=== PATIENT | male | born 1995 | race Caucasian/White ===

== ENCOUNTER 2017-01-15 23:13 | Emergency (ER) | payer BC ==
[2017-01-16] MEDS ORDERED: Acetaminophen TAB* 325 MG PO ONE ×2 (01:56→07:59)
[2017-01-16] MEDS ORDERED: Cephalexin CAP* 500 MG PO ONE (01:56)
--- NOTE | 2017-01-16 01:57 | ED ---
Head Injury - HPI Summary HPI Summary: Pt here w/ head laceration. Not sure how this occurred as he's intoxicated tonight. Recalls drinking beers and liquor after class w/ friends at their house. He then thinks he walked home -not sure if he was by himself or w/ someone. After much deliberation and repeating himself, he finally concludes that he may have hit his head on the way home, got himself into his apartment, snapchatted a story and when his friends saw blood on his face, came over to help? (but he's not sure). Believes friends called an ambulance which brought him here. Repeats he probably would have if they hadn't come over because there was so much blood all over his apartment. Currently, area of injury to Rt side of head hurts, but otherwise does not feel like he has any other injuries at this time. Imms are [employer] - student at . H/o Lt sided head injury w/ scar over Lt side of head. States he had surgery for a bleed here in the past. - History Of Current Complaint Chief Complaint: EDHeadInjury Stated Complaint: RIGHT EAR LAC Time Seen by Provider: 01/16/17 00:46 Hx Obtained From: Patient Pain Intensity: 0 - Allergies/Home Medications Allergies/Adverse Reactions: Allergies Allergy/AdvReac Type Severity Reaction Status Date / Time No Known Allergies Allergy Verified 01/15/17 23:39 PMH/Surg Hx/FS Hx/Imm Hx Previously Healthy: Yes Endocrine/Hematology History: Denies: Hx Anticoagulant Therapy, Hx Blood Disorders, Hx Unexplained Bleeding Neurological History: Reports: Other Neuro Impairments/Disorders - h/o head injury causing bleeding w/ Lt side surgical entry and now scar - Immunization History Date of Tetanus Vaccine: utd Date of Influenza Vaccine: none Infectious Disease History: No Infectious Disease History: Denies: Traveled Outside the [place] in Last 30 Days - Family History Known Family History: Positive: Unknown - pt intoxicated - Social History Occupation: Student Lives: Alone - studio apartment Alcohol Use: Weekly Substance Use Type: Reports: Marijuana Hx Tobacco Use: No Smoking Status (MU): Never Smoked Tobacco Review of Systems Positive: Fatigue Negative: Photophobia Negative: Dental Pain Negative: Chest Pain Negative: Shortness Of Breath Negative: Abdominal Pain, Vomiting, Diarrhea, Nausea Positive: no symptoms reported Negative: Arthralgia, Myalgia, Decreased ROM, Edema Skin: Other - see HPI Positive: Headache. Negative: Weakness, Paresthesia, Numbness, Syncope Positive: Anxious - concerned about events of the night - what did he post on social media? states he wants to go "home" to [place] for a while; unsure about how his head injury occurred and is concerned about this All Other Systems Reviewed And Are Negative: Yes Physical Exam Triage Information Reviewed: Yes Vital Signs On Initial Exam: Initial Vitals Temp Pulse Resp BP Pulse Ox 98.3 F 90 12 117/54 97 01/15/17 23:29 01/15/17 23:29 01/15/17 23:29 01/15/17 23:29 01/15/17 23:29 Vital Signs Reviewed: Yes Appearance: Positive: No Pain Distress - appears intoxicated, pleasant, cooperative but also restless w/ movements at times and needs frequent redirection, Well-Nourished Skin: Positive: Warm - linear laceration over Rt scalp w/ underlying hematoma Head/Face: Positive: Other - Pt has a laceration over Rt parietal scalp - dried blood on face, neck and hands Eyes: Positive: EOMI, JULI, Conjunctiva Inflammed - s/p crying. Negative: Discharge ENT: Positive: Hearing grossly normal, Pharynx normal, TMs normal - no hemotympanum. Negative: Nasal drainage - no signs if epistaxis Dental: Negative: Dental Fracture @ Neck: Positive: Supple, Nontender Respiratory/Lung Sounds: Positive: Clear to Auscultation, Breath Sounds Present , Other - pt isnot wearing a shirt - equal chest rise w/o signs of injury; ribs are NTTP and no pain w/ deep inspiration Cardiovascular: Positive: Normal, RRR, S1, S2 Abdomen Description: Positive: Nontender, Soft Bowel Sounds: Positive: Present Musculoskeletal: Positive: Normal, Strength/ROM Intact Neurological: Positive: Sensory/Motor Intact, CN Intact II-III, Other - repeating himself, not sure what happened tonight, tearful, confused at times, needs frequent redirection as he comes out of room a few times; h/o prior head injury w/ scar over Lt side of head Psychiatric: Positive: Other - labile mood - happy then tearful then angry when denied "percocet" for pain - explained why this is dangerous multiple times and frequently redirecting him to hold ice on affected area and that tylenol provided takes time to start working - also reassured we will recheck pain level and try other options if initial treatments are ineffective - [place] Coma Scale Coma Scale Total: 15 Procedures - Laceration/Wound Repair 1 Location: head Description: Linear Length, Depth and Shape: 0.5cm x 3mm Irrigated w/ Saline (ccs): 250 Laceration/Wound Explored: clean Closure: Maranda #__ - 2 Layer Closure?: No Sterile Dressing Applied?: No - triple antibiotic oinment Diagnostics - Vital Signs Vital Signs Temp Pulse Resp BP Pulse Ox 01/15/17 23:29 98.3 F 90 12 117/54 97 - Laboratory Lab Statement: Any lab studies that have been ordered have been reviewed, and results considered in the medical decision making process. Head Injury Course/Dx Course Of Treatment: Pt presents intoxicated w/ head injury of unknown origin. He has a laceration and hematoma so it is suspected that some force did travel to/through skull and brain tissue. Difficult to asses true neuro status w/ intoxication potentially masking symptoms. CT of head w/o hemorrhage. Lac repaired. Anbs initiated as again, origin of injury is unknown. Pt still confused and repeating himself so will hold w/ neuro checks until mental clarity prevails as he appears to have had a previous head injury w/ ( intercranial) hemorrhage per pt. Signed out to Dr. Driscoll @ 4:00AM. - Diagnoses Provider Diagnoses: Head injury, Scalp laceration - Physician Notifications Discussed Care Of Patient With: Dr. Driscoll Discharge - Discharge Plan Condition: Guarded Disposition: OTHER Discharge Disposition Comment: Signed out to Dr. Driscoll Prescriptions: Cephalexin CAP* [Keflex CAP*] 500 mg PO BID #9 cap Patient Education Materials: Laceration (ED), Concussion (ED), Head Injury (ED) , Staple Care (ED) Forms: *Physical Education Release Referrals: [facility] [Primary Care Provider] - Additional Instructions: You have 2 maranda in your scalp - you may gently wash your wound daily with soap and rinse well with water - pat dry and apply triple antibiotic ointment. These needs to be removed by PCP in 7 days. Call Wednesday to schedule an appointment for removal. Complete your antibiotics as directed. *If you develop fever, chills, purulent drainage, return to ED You have sustained this scalp wound from a head injury of unknown etiology. Since you were intoxicated at the time of injury and it was difficult to deliberate between intoxication and concussion symptoms, it is advised that you monitor your symptoms over the next 24-48 hours for neurological deficits. If these present (ie. visual change, vomiting, severe headache, weakness, confusion , imbalance, etc), return to ED. Follow-up with your PCP next week to re- evaluate these symptoms as well. It is very important that you avoid a repeat head injury close to this head injury. Your PCP may provide more information about follow-up care in the weeks to come.
[2017-01-16 08:20] VITALS: BP 123/76
--- NOTE | 2017-01-16 08:21 | RAD ---
INDICATION: Right temporal laceration in the presence of EtOH. COMPARISON: None. TECHNIQUE: Contiguous axial sections of the brain were obtained from the skull base to the vertex without contrast. FINDINGS: The ventricles, cisterns and sulci are within normal limits. The chandler-white matter differentiation is adequately maintained and there is no sulcal effacement. No significant focal abnormality or mass effect is present. There is no evidence for intracranial hemorrhage. A small amount of subcutaneous thickening and hematoma is seen overlying the right temporal bone (image 28). No significant focal osseous abnormality is present. The visualized portion of the paranasal sinuses and mastoid air cells appear clear. IMPRESSION: Evidence of superficial injury overlying the right temporal bone without underlying calvarial fracture or intracranial hemorrhage.
== END 2017-01-16 08:19 ==
LOC: ED 23:13
DX: S01.01XA Laceration without foreign body of scalp, initial encounter (principal); S09.90XA Unspecified injury of head, initial encounter; F10.129 Alcohol abuse with intoxication, unspecified; X58.XXXA Exposure to other specified factors, initial encounter; Y93.9 Activity, unspecified; Y92.9 Unspecified place or not applicable
CPT/HCPCS: 12011; 70450; 99282; A9270-GY